=== PATIENT | female | born 1995 | race Caucasian/White ===

== ENCOUNTER 2017-09-17 17:42 | Outpatient (CLI) | payer MEDICAID ==
[2017-09-17 18:20] VITALS: BP 94/60
[2017-09-17 19:31] LABS: Bacteria,Urine 1+ /HPF (Negative); Bilirubin,Urine NEG (Negative); Blood,Urine NEG (Negative); Color,Urine Yellow (Yellow); Protein,Urine <15 mg/dL mg/dL (Negative); Urobilinogen,Urine < 2.0 mg/dL (<2.0); WBC,Urine < 1.0 /HPF (0.0-6.0)
[2017-09-17] MEDS ORDERED: LACTATED RINGERS 1,000 ML IV ONE (19:46)
== END 2017-09-17 20:29 | disposition home or self-care (01) ==
LOC: TRG 17:42
PROVIDERS: ATTEND Obstetrics & Gynecology
DX: O47.02 False labor before 37 completed weeks of gestation, second trimester (principal); Z3A.29 29 weeks gestation of pregnancy
CPT/HCPCS: 59025; 81001; 96360; J7120

== ENCOUNTER 2017-10-03 13:50 | Outpatient (CLI) | payer MEDICAID ==
[2017-10-03 14:18] VITALS: BP 100/57
== END 2017-10-03 14:06 | disposition home or self-care (01) ==
LOC: TRG 13:50
PROVIDERS: ATTEND Obstetrics & Gynecology
DX: O47.03 False labor before 37 completed weeks of gestation, third trimester (principal); Z3A.31 31 weeks gestation of pregnancy
CPT/HCPCS: 59025

== ENCOUNTER 2017-11-02 02:57 | Outpatient (CLI) | payer MEDICAID ==
[2017-11-02] MEDS ORDERED: LACTATED RINGERS 1,000 ML IV ONE (03:17)
[2017-11-02 03:28] VITALS: BP 110/55
[2017-11-02 04:44] LABS: Bilirubin,Urine NEG (Negative); Blood,Urine SM (Negative); Color,Urine Straw (Yellow); Protein,Urine <15 mg/dL mg/dL (Negative); Urobilinogen,Urine < 2.0 mg/dL (<2.0)
[2017-11-02] MEDS ORDERED: BRETHINE SUB-Q ONE (04:44)
[2017-11-02 05:08] LABS: RBC,Urine < 1.0 /HPF (0.0-6.0); WBC,Urine < 1.0 /HPF (0.0-6.0)
[2017-11-02] MEDS ORDERED: VISTARIL PO ONE (05:30)
== END 2017-11-02 05:50 | disposition home or self-care (01) ==
LOC: TRG 02:57
PROVIDERS: ATTEND Obstetrics & Gynecology
DX: O47.03 False labor before 37 completed weeks of gestation, third trimester (principal); O62.8 Other abnormalities of forces of labor; Z3A.35 35 weeks gestation of pregnancy
CPT/HCPCS: 59025; 81001; 96360; 96372; J3105; J7120; Q0177

== ENCOUNTER 2017-11-19 14:52 | Outpatient (CLI) | payer MEDICAID ==
[2017-11-19 15:28] VITALS: BP 111/56
== END 2017-11-19 16:41 | disposition home or self-care (01) ==
LOC: TRG 14:52
PROVIDERS: ATTEND Obstetrics & Gynecology
DX: O47.1 False labor at or after 37 completed weeks of gestation (principal); Z3A.38 38 weeks gestation of pregnancy
CPT/HCPCS: 59025